=== PATIENT | female | born 2000 | race Two or more races ===

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

== ENCOUNTER 2019-09-12 18:04 | Emergency (ER) | payer MEDICAID ==
[~2019-09-12] VITALS: Ht 165.1 cm; Wt 99.8 kg
[2019-09-12] MEDS ORDERED: LORAZEPAM INJ 2 MG/ML VIAL ONE ×2 (18:06→18:23)
[2019-09-12] MEDS ORDERED: diphenhydrAMINE HCL 50 MG/ML VIAL ONE (18:06)
[2019-09-12] MEDS ORDERED: HALOPERIDOL LACTATE INJ 5 MG/ML VIAL ONE (18:06)
--- NOTE | 2019-09-12 18:06 | NUR ---
BIB FAMILY FOR AGITATION POSSIBLE DRUG USE, pt to bed 6, awake, arousable, -sob, pt on monitor, vss, nad noted. pending md montgomery
[2019-09-12 18:18] LABS: BASOPHILS # (AUTO) 0.1 /CMM (0.0-0.2); BASOPHILS % (AUTO) 0.6 % (0.0-2.0); EOSINOPHILS % (AUTO) 0.5 % (0.0-6.0); HEMATOCRIT 45 % (33-45); HEMOGLOBIN 14.7 g/dL (11.5-14.8); LYMPHOCYTES # (AUTO) 2.4 /CMM (0.8-4.8); LYMPHOCYTES % (AUTO) 15.5 % (20.0-44.0); MEAN CORPUSCULAR HGB CONC 33 g/dl (31.0-36.0); MEAN CORPUSCULAR VOLUME 97 fL (82-100); MONOCYTES # (AUTO) 1.6 /CMM (0.1-1.30); MONOCYTES % (AUTO) 10.6 % (2.0-12.0); NEUTROPHILS # (AUTO) 11.3 /CMM (1.8-8.9); NEUTROPHILS % (AUTO) 72.8 % (43.0-81.0); PLATELET COUNT (AUTO) 365 /CMM (150-450); RED BLOOD CELL COUNT(AUTO) 4.64 MIL/uL (4.0-5.2); WHITE BLOOD COUNT (AUTO) 15.5 K/uL (4.3-11.0)
[2019-09-12] MEDS: diphenhydrAMINE HCL 50 MG/ML VIAL IM ONE (18:22)
[2019-09-12] MEDS: HALOPERIDOL LACTATE INJ 5 MG/ML VIAL IM ONE (18:22)
[2019-09-12] MEDS: LORAZEPAM INJ 2 MG/ML VIAL IM ONE ×2 (18:22→18:41)
--- NOTE | 2019-09-12 18:22 | NUR ---
PT HAD A TONIC CLONIC SZR LASTING 30SECS; BERNARDINO KING AWARE, WITH NEW ORDERS; SEIZURE PRECAUTIONS STARTED, PT ON NON-RBR O2 SAT 100%, NAD NOTED.
[2019-09-12 18:26] LABS: CALCIUM, SERUM 9.1 mg/dL (8.5-10.1); CARBON DIOXIDE 14 mmol/L (21-32); CHLORIDE 100 mmol/L (98-107); CREATININE 1.5 mg/dL (0.6-1.3); GLUCOSE 135 mg/dL (74-106); POTASSIUM 3.3 mmol/L (3.5-5.1); SODIUM SERUM 140 mmol/L (136-145); UREA NITROGEN, BLOOD 10 mg/dL (7-18)
[2019-09-12 18:31] LABS: ALANINE AMINOTRANSFERASE 24 U/L (12-78); ALBUMIN 4.4 g/dL (3.4-5.0); ALCOHOL, BLOOD < 3 mg/dL (0-0); ALKALINE PHOSPHATASE 105 U/L (46-116); ASPARTATE AMINOTRANSFERASE 17 U/L (15-37); BILIRUBIN,DIRECT 0.1 mg/dL (0.0-0.2); BILIRUBIN,TOTAL 0.4 mg/dL (0.2-1.0); TOTAL PROTEIN, SERUM 8.7 g/dL (6.4-8.2)
[2019-09-12 18:33] LABS: ACETAMINOPHEN < 2 ug/ml (10-30); SALICYLATE 1.6 mg/dL (2.8-20.0)
[2019-09-12] MEDS: IV NS 0.9% 1,000 ML BAG IV ONE (18:41)
--- NOTE | 2019-09-12 19:02 | NUR ---
PT IN BED, SLEEPING, BREATHING EVEN AND UNLABORED, -SOB, PT ON MONITOR, VSS.
[2019-09-12 19:17] LABS: APPEARANCE,URINE Clear (CLEAR); BILIRUBIN,URINE SMALL (NEGATIVE); BLOOD, URINE Moderate Ery/uL (NEGATIVE); COLOR,URINE Yellow (YELLOW); KETONES,URINE Trace (NEGATIVE); LEUKOCYTE ESTERASE ,URINE Negative (NEGATIVE); NITRITE, URINE Negative (NEGATIVE); PROTEIN,URINE 100 mg/dl (NEGATIVE); UGLUCOSE Negative (NEGATIVE)
[2019-09-12 19:43] LABS: BACTERIA,URINE Few /HPF (None Seen); SQUAMOUS EPITHELIAL CELL,UR Few /HPF (None Seen); WBC,URINE 0-2 /HPF (0-3)
[2019-09-12 20:13] LABS: THYROID STIMULATING HORMONE 0.936 uIU/mL (0.358-3.74)
--- NOTE | 2019-09-13 00:02 | NUR ---
star mom --call her when patient wakes up
--- NOTE | 2019-09-13 01:42 | NUR ---
PT REMOVED HER IV. Pressure and 4x4 applied to site. No bleeding noted.
--- NOTE | 2019-09-13 08:27 | NUR ---
Social service consult requested by MD for bizarre behavior. Per MD notes, "pt is a 19-year-old female with a history of bipolar disorder, depression, anxiety, methamphetamine dependence who is brought in by mother with complaints of bizarre behavior. Mother called 911 when the patient started acting bizarrely and aggressively towards her. Mother states that patient has been extremely aggressive over the past couple days having outbursts and pacing throughout the home." [employer] met with the pt bedside. Pt is alert and oriented x 2. Pt is on restraints at this time and has a sitter bedside. Pt appears disheveled. Pt's mood is labile. Patient is not responding to verbal questioning although she is alert and making eye contact with ME[employer]. [employer] contacted pt's mother Gabriela and left her a voicemail message requesting a callback.
--- NOTE | 2019-09-13 09:47 | NUR ---
MAHESH FORD AT BEDSIDE
[2019-09-13] MEDS ORDERED: OLANZAPINE 5 MG/TAB.RAPDIS ONE (10:01)
[2019-09-13] MEDS: OLANZAPINE 5 MG TABLET PO ONE (10:03)
--- NOTE | 2019-09-13 10:45 | NUR ---
ROLL ON MAN met with the pt bedside. Pt is alert and oriented x 2. Pt is on restraints at this time and has a sitter bedside. Pt appears disheveled. Pt's mood is labile. Patient is not responding to verbal questioning although she is alert and making eye contact with ROLL ON MAN. ROLL ON MAN met with pt and her mother. Pt was brought in by her mother for bizarre and aggressive behavior at home. Mother states that patient has been extremely aggressive over the past couple days having outbursts and pacing throughout the home." Patient has been in the ED since 09/12/19 and has been given Haldol, Ativan and Benadryl. Patient's presentation is one of schizoaffective vs bipolar disorder. She is non-complaint with her psychotropic medication per mom. Mom Gabriela reports that pt. has a psychiatric diagnosis of Bipolar, Anxiety Disorder and Paranoid Schizophrenia. Mom stated, pt was prescribed Xanax, Klonopin, Ativan and Benadryl. Pt has not been on her medications for the past 4 years. Pt admits to seeing " people in front of her". Pt was given Zyprexa 10 mg PO this AM in ED. Patient was seen in this ED with similar presentation in 2018 and has a history of non-compliance with treatment and methamphetamine abuse. Pt had one psychiatric hospitalization at [facility] 4 years ago. Pt is in need of psychiatric hospitalization and medication management. Tox screen is not showing methamphetamine intoxication this visit however, pt disclosed she smoked a CBD wax that was laced with some substance. ROLL ON MAN will refer pt to [facility] for psychiatric hospitalization.
--- NOTE | 2019-09-13 12:11 | NUR ---
CLASSIFIED AD TAKER received a call from Jean-Claude in intake informing CLASSIFIED AD TAKER that she received a call from Myriam at [facility] and she is requesting for CLASSIFIED AD TAKER note to be faxed to her and she will assist with placement. CLASSIFIED AD TAKER faxed requested note to .
--- NOTE | 2019-09-13 13:15 | NUR ---
MAHESH ROSA AT BEDSIDE
--- NOTE | 2019-09-13 13:25 | NUR ---
patient off restraint in no distress, sitter at bedside for constant monitoring. Patient is calm at the moment. Willc otninue to monitor accordingly.
--- NOTE | 2019-09-13 15:17 | NUR ---
Art PHYSICIAN INDUSTRIAL at bedside for eval.
[2019-09-13] MEDS ORDERED: OLANZAPINE 10 MG VIAL IM ONE (16:06)
[2019-09-13] MEDS: OLANZAPINE 10 MG VIAL IM ONE (16:25)
[2019-09-13] MEDS ORDERED: LORAZEPAM INJ 2 MG/ML VIAL ONE (18:21)
[2019-09-13] MEDS: LORAZEPAM INJ 2 MG/ML VIAL IM ONE (18:30)
--- NOTE | 2019-09-13 23:04 | NUR ---
RECEIVED A CALL FROM INTAKE. MIGHT GET A BED AT [facility] IN [place]. STILL WAITING FOR BED AT [facility].
--- NOTE | 2019-09-13 23:22 | NUR ---
REPORT GIVEN TO ROWAN AT [facility]
--- NOTE | 2019-09-13 23:23 | NUR ---
PT IS ACCEPTED AT [facility] , RM:144-2 ACCEPTING P[facility]YC: DR. ALCANTARA # [phone]
--- NOTE | 2019-09-13 23:38 | NUR ---
[facility] CALLED FOR TRANSPORT. ETA 45MINUTES. TRIP#[id number]
[2019-09-13] MEDS ORDERED: CLONIDINE HCL 0.1 MG TABLET ONE (23:42)
[2019-09-13 23:49] VITALS: BP 144/89
[2019-09-13] MEDS: CLONIDINE HCL 0.1 MG TABLET PO ONE (23:49)
--- NOTE | 2019-09-13 23:49 | NUR ---
BP:144/89. CLONIDINE WAS HELD PER MD'S ORDER
[2019-09-14] MEDS ORDERED: OLANZAPINE 10 MG VIAL IM ONE (00:20)
[2019-09-14] MEDS: OLANZAPINE 10 MG VIAL IM ONE (00:24)
--- NOTE | 2019-09-14 00:44 | NUR ---
[facility] AT BEDSIDE FOR TRANSPORT TO [facility].
== END 2019-09-14 00:58 ==
LOC: ER 18:06
DX: R45.1 Restlessness and agitation (principal); R46.1 Bizarre personal appearance; R56.9 Unspecified convulsions; R51 Headache; R00.0 Tachycardia, unspecified
CPT/HCPCS: 36415; 70450; 80048; 80076; 80305; 80307; 80329; 81001; 84443; 84702; 84703; 85025; 93005; 96372 ×5; 99285; G0480; J1200; J1630; J2060 ×3; J3490 ×2; J7030; 81000-TC